=== PATIENT | female | born 1945 | race Caucasian/White ===

== ENCOUNTER 2018-12-06 13:18 | Emergency (ER) | payer BC, SELFPAY ==
[2018-12-06 13:19] VITALS: BP 138/79; PULSE 80; RESP 16; TEMP 36.7; O2SAT 98; BMI 24.3
--- NOTE | 2018-12-06 13:25 | RAD_ITS ---
STUDY: X-RAY CHEST REASON FOR EXAM: Female, 74 years old. Cough TECHNIQUE: AP COMPARISON: None. FINDINGS: The lungs are clear and expanded. There is no demonstrated pleural abnormality. Normal size heart. Normal mediastinum and steffen. Normal visualized pulmonary arteries. Normal visualized aortic arch and descending thoracic aorta. Normal visualized thoracic spine. Normal visualized ribs, clavicles, and shoulders. There is no demonstrated abnormality of the visualized soft tissue structures of the upper abdomen. RAD/Chest 1 View (Portable) IMPRESSION: Nonacute portable x-ray examination of the chest. Electronically Signed: Williams Sanches MD ([place]) at 14:07 EDT , Service support ,
--- NOTE | 2018-12-06 13:25 | EKG12_ITS ---
Test Reason : Blood Pressure : / mmHG Vent. Rate : 074 BPM Atrial Rate : 074 BPM P-R Int : 132 ms QRS Dur : 078 ms QT Int : 412 ms P-R-T Axes : 038 000 030 degrees QTc Int : 457 ms Normal sinus rhythm Normal ECG Confirmed by VAUGHN PANG, DAREN ([id number]), proposal editor LANDON ANAYA ([id number]) on 12/08/2018 11:30:38 AM Referred By: SHAUN Confirmed By:DAREN MENDES MD
--- NOTE | 2018-12-06 13:33 | NURSING ---
NO OLD EKGS
[2018-12-06 13:50] VITALS: PULSE 80; RESP 16; O2SAT 96
[2018-12-06] MEDS: Ipratropium/Albuterol Sulfate 3 ML AMPUL.NEB INHALATION (13:50)
[2018-12-06 14:05] LABS: Absolute Lymphocyte Count 1.88 X10^3/uL (0.83-4.51); Absolute Neutrophil Count 4.3 X10^3/uL (2.0-7.7); Basophil# 0.04 X10^3/uL; Basophil% 0.6 % (0-1); Eosinophil# 0.41 X10^3/uL; Eosinophils% 5.7 % (0-5); Hematocrit 40.3 % (37-47); Lymphocyte # 1.88 X10^3/ul (4.0); Mean Corp Hgb Conc 32.3 g/dL (32-36); Mean Corpuscular Hgb 30.4 pg (27.0-32.0); Mean Corpuscular Volume 94.2 fL (81-99); Mean Platelet Vol. 9.9 fl (6.2-12.0); Monocyte# 0.62 X10^3/uL; Monocyte% 8.6 % (0-10); NRBC Flagged by Analyzer 0 % (0-5); Neutrophil # 4.25 X10^3/uL (2.7-7.7); Neutrophil % 58.8 % (47-70); Platelet Count 249 K/mm3 (150-450); RBC Distribution Width CV 14.1 % (11.6-14.6); RBC Distribution Width SD 48.2 fl (35.1-43.9); Red Blood Count 4.28 M/mm3 (4.2-5.4); White Blood Count 7.2 K/mm3 (4.4-11.0)
[2018-12-06 14:10] VITALS: PULSE 78; RESP 15; O2SAT 98
[2018-12-06 14:22] LABS: Anion Gap 6 (5-15); BUN 28 mg/dL (7-18); Calcium,Total 8.5 mg/dL (8.5-10.1); Chloride 111 mmol/L (98-107); Creatinine, Serum 0.74 mg/dL (0.55-1.02); EST Glomerular Filtration Rate 82 mL/min (>60); Est Glom Filt Rate - Afr Amer 99 mL/min (>60); Glucose 118 mg/dL (74-106); Potassium 4.2 mmol/L (3.5-5.1); Sodium Level 144 mmol/L (136-145)
[2018-12-06 14:32] LABS: BNP,B-Type NATRIURETIC PEPTIDE 83.9 pg/mL (0-100)
--- NOTE | 2018-12-06 14:35 | ED.VIS.GEN ---
History of Present Illness Chief Complaint: Cough Informant: Patient Onset: Days Maximum Severity: Mild Narrative: The patient presents complaining of a cough for the last few days. She indicates she traveled 3 hours from [place] the [place] a [place] days ago during that travel indicates the pain was very cold she developed nasal congestion and harsh constant cough. 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 She is had no fever no chest pain no abdominal pain no numbness weakness paresthesias, she has no history of NH PE or DVT, she indicates she did have pneumonia a year ago she was prescribed Avelox and improved she indicates she does not have any chronic medical history of the report 20 years ago she had hysterectomy due to cancer treated with follow-up radiation chemotherapy and her health has been fine since. Past Medical History - Allergies and Home Meds Allergies/Adverse Reactions: Allergies No Known Allergies Allergy (Verified 12/06/18 13:20) Primary Care Physician: Care Physician,No Primary [Primary Care Provider] - Past Medical History: - Smoking Status: Never smoker Review of Systems ROS: - As above General: Denies: Chills, Fever, Sweats Eyes: Denies: Visual changes - bilaterally, Diplopia ENT: Denies: Rhinorrhea, Sore throat Cardiovascular: Denies: Chest pain, Palpitations Respiratory: Reports: Cough. Denies: Dyspnea, Dyspnea on exertion Gastrointestinal: Denies: Abdominal pain, Nausea, Vomiting, Diarrhea, Melena, Hematochezia Genitourinary: Denies: Dysuria, Hematuria, Frequency Musculoskeletal: Denies: Back pain, Extremity Pain Skin: Denies: Rash, Wounds Neurological: Denies: Headache, Weakness, Numbness Physical Exam Vital Signs/Narrative: Vital Signs Temp Pulse Resp BP Pulse Ox 12/06/18 14:10 78 15 98 12/06/18 13:50 80 16 96 12/06/18 13:19 98.1 F 80 16 138/79 H 98 General: Well nourished, Well developed, No Acute Distress Head: Normocephalic, Atraumatic Eyes: Perrl, EOMI ENT: Moist mucous membranes, No rhinorrhea Neck: Supple, Nontender Cardiovascular: Regular rate, Regular rhythm, No murmurs Respiratory: No distress, CTA bilaterally, Chest nontender, - - Her lungs sound clear she has a dry harsh cough here her nose is slightly congested she is in no distress speaking full sentences Abdomen: Soft, Nontender, Nondistended, Normal bowel sounds Back: Nontender, Normal Inspection Extremities: Nontender, No edema Skin: Normal color, No rash Neurological: Alert, Oriented x3, Cranial nerves II-XII grossly intact, Normal Strength, Normal Sensation Psychological: Normal affect, Normal Mood Diagnostic/Tx/Re-eval - Medical Decision Making Given all the above competence evaluations pursued, chest x-ray is unremarkable per radiology all screening labs are unremarkable EKG shows a sinus rhythm nothing acute treated with aerosols I had a long conversation with her and her family she is currently on Avelox therapy, which has helped her in the past when she developed similar symptoms nothing at this time suggest PE NH etc., she is had the symptoms before this was precipitated she indicates having a very cold travel environment, at this time she discharged on a Proventil inhaler Flonase continue Avelox and she is referred to local primary care providers and also given a referral to Dr. So of pulmonary she will return for change in symptoms she is comfortable with this plan Home stable Impression final Cough, exacerbation of COPD ED Disposition - Plan for ED Patient: Diagnosis: Cough, COPD exacerbation, Bronchitis Instructions: BRONCHITIS, Antiobiotic Treatment (Adult), Copd Flare Prescriptions: Fluticasone 0.05% [Flonase Nasal [place]] 1 spray NASAL BID #1 bottle Prescription Printed Guaifenesin/Dextromethorphan [Mucinex Dm ER 600-30 mg Tablet] 1 ea PO BID #20 tab.er.12h Prescription Printed Albuterol Inhaler [Ventolin Hfa] 1 - 2 puff INHALATION Q4H PRN PRN #1 inhaler PRN Reason: Wheezing Prescription Printed Referrals: Care Physician,No Primary [Primary Care Provider] - Reagan So MD [STAFF PHYSICIAN] -
[2018-12-06 14:54] VITALS: BP 116/64; PULSE 75; RESP 19; O2SAT 97
== END 2018-12-06 14:55 | disposition home or self-care (01) ==
PROVIDERS: Emergency Provider Emergency Medicine
DX: J44.1 Chronic obstructive pulmonary disease with (acute) exacerbation (principal); Z87.01 Personal history of pneumonia (recurrent); Z92.21 Personal history of antineoplastic chemotherapy; Z92.3 Personal history of irradiation; Z90.710 Acquired absence of both cervix and uterus
CPT/HCPCS: 71045; 80048; 83880; 84484; 85025; 93005; 94640; 99285; A4216